=== PATIENT | male | born 1950 | race Caucasian/White ===

== ENCOUNTER 2021-02-28 06:46 | Day surgery (SDC) | payer MEDICARE, OTHER ==
[~2021-02-28 06:46] MED LIST: BUPIVACAINE 0.5% VIAL IJ ONE; Lactated Ringers 1,000 ML IV ONE; XYLOCAINE 1% HCL 20 ML MDV ONE
[2021-02-28] MEDS ORDERED: CEFAZOLIN 2 GM-D5W BAG** 2 GM/50 ML ML IV SCH (07:00)
[2021-02-28] MEDS ORDERED: Lactated Ringers 1,000 ML IV SCH (07:00)
[2021-02-28] MEDS ORDERED: CEFAZOLIN 2 GM-D5W BAG** 2 GM/50 ML ML IV ONE (07:01)
[2021-02-28] MEDS ORDERED: Lactated Ringers 1,000 ML IV ONE (07:01)
[2021-02-28] MEDS ORDERED: Sodium Chloride 3 ML UD NEBULES IH ONE (07:33)
[2021-02-28] MEDS ORDERED: Xopenex 1.25 MG/0.5 ML UD NEBULE IH ONE ×2 (07:33→07:38)
[2021-02-28 07:41] LABS: ANION GAP 10.1 MEQ/L (5-15); BLOOD UREA NITROGEN 25 mg/dL (9-20); CHLORIDE 102 mmol/L (98-107); Calcium 9.3 mg/dL (8.4-10.2); Carbon Dioxide 31 mmol/L (22-30); Creatinine 1 0.94 mg/dL (0.66-1.25); EST GLOMERULAR FILTRATION RATE > 60.0 ML/MIN; Glucose 112 mg/dL (74-106); SODIUM 139 mmol/L (137-145)
[2021-02-28] MEDS ORDERED: Versed 2 MG/2 ML Injection ONE (08:13)
[2021-02-28] MEDS ORDERED: SUBLIMAZE 100 MCG/2 ML ONE ×2 (08:13→08:26)
[2021-02-28] MEDS ORDERED: DIPRIVAN 200 MG/20 ML IV ONE ×4 (08:13→10:05)
--- NOTE | 2021-02-28 10:35 | XRAY ---
Indication: Unsuccessful hardware removal. Intraoperative fluoroscopy provided for 31 seconds. Single digital spot image submitted for interpretation demonstrates lateral 5th metatarsal fixation plate/screws. Correlate with intraoperative findings/report.
--- NOTE | 2021-02-28 10:37 | XRAY ---
31 seconds fluoroscopy time in surgery for unsuccessful hardware removal left foot.
[2021-02-28 11:39] VITALS: BP 136/71; PULSE 55; O2SAT 94
--- NOTE | 2021-03-05 13:48 | OP ---
SURGERY DATE/TIME: 02/28/202119 PREOPERATIVE DIAGNOSIS: Painful orthopedic hardware to left foot. POSTOPERATIVE DIAGNOSIS: Painful orthopedic hardware to left foot. PROCEDURE: Attempted removal of hardware left foot. SURGEON: Ortiz Conway DPM. HOME THERAPY TEACHER: None. ANESTHESIA: MAC plus local. HEMOSTASIS: Mid-calf tourniquet set to 250 mm of Mercury for 50 minutes. ESTIMATED BLOOD LOSS: Less than 10 cc. MATERIALS: 2-0 Nylon. INJECTABLES: 15 cc of 1:1 mixture of 0.5% bupivicaine plain and 1% lidocaine plain injected in a mini-Price type fashion. DESCRIPTION OF PROCEDURE AND FINDINGS: Following adequate assessment by the anesthesia team, the patient was brought into the OR and placed on the OR table. At this time a well-padded thigh tourniquet was placed on the patient's left mid-calf. Adequate sedation was administered by the anesthesia team and a preoperative block consisting 15 cc of a 1:1 mixture of 1% lidocaine plain and 0.5% bupivacaine plain was injected in a mini-Price type fashion to the left lower extremity. At this time the left lower extremity was prepped and draped in the typical sterile fashion and the surgical extremity was lowered onto the surgical field. At this time tourniquet was inflated after Esmarch was applied to the left lower extremity and attention was directed under fluoroscopic imaging to the lateral aspect of the fifth metatarsal base. Once identification of the location of the screw and plate most distal in the metatarsal was identified, a percutaneous stab incision approximately 1 cm in length was made utilizing blunt and sharp dissection at this location. On dissection down to the level of the plate, inspection of the plate and the screws demonstrated that this was a 2.7 Canales head screw which the staff did not have on hand. At this time multiple attempts were made in order to remove the screws utilizing a combination of rongeurs, flat head screws, star-headed drivers with gloves in order to maintain friction and manual manipulation of the screw. However, the adequate flag car driver size was not found. Runners were sent to a nearby hospital in order to obtain their surgical hardware set and the rep on-hand did not have the adequate tools to remove the 2.7 Canales head screws. At this time the decision was made to flush and close the incision site at the distal extent of the surgical site. Tourniquet was let down at 50 minutes total tourniquet time. 3-0 Nylon was utilized in a horizontal mattress-type fashion to coapt the skin edges together and a compression dressing consisting of betadine, Adaptic, 4x4, Dayami and Coban was applied to the left foot. The patient was reversed from anesthesia and returned to the postoperative anesthesia care unit with vascular status intact and vital signs stable. Postoperative orders as indicated in the patient's chart.
== END 2021-02-28 11:50 | disposition home or self-care (01) ==
LOC: SDC 06:46
PROVIDERS: ATTEND Podiatrist Foot & Ankle Surgery
DX: T84.84XA Pain due to internal orthopedic prosthetic devices, implants and grafts, initial encounter (principal); I10 Essential (primary) hypertension; Z79.899 Other long term (current) drug therapy
CPT/HCPCS: 20680; 36415; 73620; 76000; 80048; 94640; 99100; J0690; J2250; J2704; J3010; A9270-GY

== ENCOUNTER 2024-01-02 01:25 | Emergency (ER) | payer MEDICARE, OTHER ==
[2024-01-02 01:53] VITALS: TEMP 98.7
--- NOTE | 2024-01-02 02:23 | ERPHSYRPT ---
- History of Present Illness Time Seen by Provider: 01/02/24 02:23 Source: patient Patient Subjective Stated Complaint: edema to bilat lower ext/wt gain 16 pounds in 6 days Triage Nursing Assessment: Pt ambulated into ER without diff, spouse at bedside. Pt had a lumbar resection on Wednesday and held his hydrochlorithiazide 100mg that morning. Pt resumed the med on Wednesday. Pt has bilat lower ext swelling and has had a 16 pound weight gain since Wednesday. Pt states, "I always have some left lower ext edema but it's slightly more today". Pt c/o aching and burning down left arenas which began around 10pm tonight. Physician History: 73yo M presents via private vehicle for left leg pain, b/l LE edema, 16lb weight gain in last 6d. Pt states he had a Neurosurgical procedure on his lumbar spine to help improve nerve pain in his left leg on 12/28/23. Pt states he held a dose of his HCTZ following this procedure, was w/o it for a total of 24h. Pt states he has seen increase in b/l LE edema over the past 2d. Pt states he also developed some tightness and discomfort over his left arenas tonight, pt is concerned for blood clot given his hx of recent surgery. Pt states he took an extra 100mg HCTZ this evening to help w/ his edema, reports he has been urinating frequently since. Pt currently denies cp, soa, n/v, pain in left posterior fossa, pain in left calf. Timing/Duration: day(s) (5d ) Severity: moderate Modifying Factors: Improves With: nothing Associated Symptoms: No nausea, No vomiting, No abdominal pain, No shortness of breath, No chest pain, No fever Allergies/Adverse Reactions: lidocaine Adverse Reaction (Unknown, Verified 01/02/24 02:03) reaction x1 has had since w/o reaction Home Medications: Amlodipine Besylate 5 mg [Norvasc 5 mg] 5 mg PO DAILY 12/07/12 [History] Eplerenone 50 mg PO DAILY 12/07/12 [History] Esomeprazole Magnesium [Nexium] 40 mg PO BID 12/07/12 [History] Potassium Chloride Tab* [Klor Con] 40 meq PO BID 12/07/12 [History] Chlorthalidone 100 mg PO DAILY 02/19/21 [History] Olmesartan Medoxomil 40 mg PO DAILY 02/19/21 [History] Testosterone Cypionate 200 mg IM UD 02/19/21 [History] Oxycodone HCl/Acetaminophen [Oxycodone-Acetaminophen 5-325] 1 tab PO Q4H PRN PRN 01/02/24 [History] Semaglutide [Ozempic] 1 mg SQ WEEKLY 01/02/24 [History] Hx Tetanus, Diphtheria Vaccination/Date Given: Yes Hx Influenza Vaccination/Date Given: Yes Hx Pneumococcal Vaccination/Date Given: Yes Immunizations Up to Date: Yes Travel Risk - International Travel Have you traveled outside of the country in past 3 weeks: No - Emerging Infectious Disease Are you exhibiting symptoms associated with any current EIDs: No - Review of Systems Constitutional: No Symptoms Respiratory: No Symptoms Cardiac: Edema, No Chest Pain, No Palpitations, No Syncope Abdominal/Gastrointestinal: No Symptoms Genitourinary Symptoms: No Symptoms - Past Medical History Neurological History: No Pertinent History ENT History: No Pertinent History Cardiac History: Hypertension Respiratory History: No Pertinent History Endocrine Medical History: No Pertinent History Musculoskeletal History: No Pertinent History GI Medical History: Diverticulitis, GERD, Hernia History: No Pertinent History Psycho-Social History: No Pertinent History Male Reproductive Disorders: No Pertinent History - Past Surgical History Past Surgical History: Yes Neuro Surgical History: No Pertinent History Cardiac: No Pertinent History Respiratory: No Pertinent History Gastrointestinal: Hernia Repair Genitourinary: No Pertinent History Musculoskeletal: Orthopedic Surgery Male Surgical History: No Pertinent History Other Surgical History: bilateral knee scopes, bilateral hernia, discectomy L4- 5, right rotator cuff, bilateral carpal tunnel, right hip replacement, L4 lumbar fusion, C2-3 cervical fusion - Social History Smoking Status: Never smoker Exposure to second hand smoke: Yes Drug Use: none - Nursing Vital Signs Nursing Vital Signs: Initial Vital Signs Temperature 98.7 F 01/02/24 01:50 Pulse Rate 74 01/02/24 01:50 Respiratory Rate 18 01/02/24 01:50 Blood Pressure 150/76 01/02/24 01:50 O2 Sat by Pulse Oximetry 98 01/02/24 01:50 Pain Scale Pain Intensity 2 - Physical Exam General Appearance: no apparent distress Respiratory Exam: normal breath sounds, lungs clear, airway intact, No respiratory distress, No crackles/rales, No rhonchi Cardiovascular Exam: regular rate/rhythm, normal heart sounds, edema (+1 b/l LE edema below knees to ankles) Gastrointestinal/Abdomen Exam: soft, normal bowel sounds, No tenderness, No distention Extremity Exam: swelling, No pedal edema, No tenderness Neurologic Exam: alert, oriented x 3, cooperative SpO2: 98 - Course EKG Interpreted by Me: RATE (66), Sinus Rhythm, Non-specific ST Changes (not suggestive of ischemia), Other (qtcb [id number]) Ordered Tests: Active Orders 24 hr Category Date Time Status EKG-ER Only STAT Care 01/02/24 02:21 Active CHEST 1 VIEW (PORTABLE) Stat Exams 01/02/24 02:22 Taken VENOUS BILATERAL EXTREMITY [US] Stat Exams 01/02/24 03:40 Taken CBC W DIFF Stat Lab 01/02/24 02:55 Completed CMP Stat Lab 01/02/24 02:55 Completed D-DIMER QUANTITATIVE Stat Lab 01/02/24 02:55 Completed NT PRO BNPII Stat Lab 01/02/24 02:55 Completed TROPONIN Q4H Lab 01/02/24 02:55 Completed TROPONIN Q4H Lab 01/02/24 06:30 Ordered TROPONIN Q4H Lab 01/02/24 10:30 Ordered Lab/Rad Data: Laboratory Result Diagrams 01/02/24 02:55 01/02/24 02:55 Laboratory Results 01/02/24 01/02/24 01/02/24 Range/Units 02:55 02:55 02:55 WBC (4.0-10.5) x10^3/uL RBC (4.1-5.6) x10^6/uL Hgb (12.5-18.0) g/dL Hct (42-50) % MCV (78-100) fL MCH (26-32) pg MCHC (32-36) g/dL RDW (11.5-14.0) % Plt Count (150-450) x10^3/uL MPV (7.5-11.0) fL Gran % (36.0-66.0) % Immature Gran % (Auto) (0.00-0.4) % Nucleat RBC Rel Count (0.00-0.1) % Eos # (Auto) (0-0.5) x10^3/uL Immature Gran # (Auto) (0.00-0.03) x10^3u/L Absolute Lymphs (auto) (1.0-4.6) x10^3/uL Absolute Monos (auto) (0.0-1.3) x10^3/uL Absolute Nucleated RBC (0.00-0.01) x10^3u/L Lymphocytes % (24.0-44.0) % Monocytes % (0.0-12.0) % Eosinophils % (0.00-5.0) % Basophils % (0.0-0.4) % Absolute Granulocytes (1.4-6.9) x10^3/uL Basophils # (0-0.4) x10^3/uL D-Dimer 1.33 H* (0.0-0.50) mg/L Sodium 139 (135-145) mmol/L Potassium 3.8 (3.5-5.1) mmol/L Chloride 99 (98-107) mmol/L Carbon Dioxide 34 H (22-30) mmol/L Anion Gap 10.0 (5-15) MEQ/L BUN 24 H (9-20) mg/dL Creatinine 0.85 (0.66-1.25) mg/dL Estimated GFR 91.8 ML/MIN Glucose 94 (74-106) mg/dL Calcium 8.9 (8.4-10.2) mg/dL Total Bilirubin 0.80 (0.2-1.3) mg/dL AST 39 (17-59) U/L ALT 37 (0-50) U/L Alkaline Phosphatase 62 (38-126) U/L Troponin I < 0.012 (0.000-0.034) ng/mL NT-Pro-B Natriuret Pep 75.3 (<300) pg/mL Serum Total Protein 6.5 (6.3-8.2) g/dL Albumin 3.5 (3.5-5.0) g/dL 01/02/24 Range/Units 02:55 WBC 4.4 (4.0-10.5) x10^3/uL RBC 4.28 (4.1-5.6) x10^6/uL Hgb 13.1 (12.5-18.0) g/dL Hct 39.1 L (42-50) % MCV 91.4 (78-100) fL MCH 30.6 (26-32) pg MCHC 33.5 (32-36) g/dL RDW 14.6 H (11.5-14.0) % Plt Count 146 L (150-450) x10^3/uL MPV 11.1 H (7.5-11.0) fL Gran % 72.7 H (36.0-66.0) % Immature Gran % (Auto) 0.5 H (0.00-0.4) % Nucleat RBC Rel Count 0.0 (0.00-0.1) % Eos # (Auto) 0.15 (0-0.5) x10^3/uL Immature Gran # (Auto) 0.02 (0.00-0.03) x10^3u/L Absolute Lymphs (auto) 0.60 L (1.0-4.6) x10^3/uL Absolute Monos (auto) 0.41 (0.0-1.3) x10^3/uL Absolute Nucleated RBC 0.00 (0.00-0.01) x10^3u/L Lymphocytes % 13.8 L (24.0-44.0) % Monocytes % 9.4 (0.0-12.0) % Eosinophils % 3.4 (0.00-5.0) % Basophils % 0.2 (0.0-0.4) % Absolute Granulocytes 3.17 (1.4-6.9) x10^3/uL Basophils # 0.01 (0-0.4) x10^3/uL D-Dimer (0.0-0.50) mg/L Sodium (135-145) mmol/L Potassium (3.5-5.1) mmol/L Chloride (98-107) mmol/L Carbon Dioxide (22-30) mmol/L Anion Gap (5-15) MEQ/L BUN (9-20) mg/dL Creatinine (0.66-1.25) mg/dL Estimated GFR ML/MIN Glucose (74-106) mg/dL Calcium (8.4-10.2) mg/dL Total Bilirubin (0.2-1.3) mg/dL AST (17-59) U/L ALT (0-50) U/L Alkaline Phosphatase (38-126) U/L Troponin I (0.000-0.034) ng/mL NT-Pro-B Natriuret Pep (<300) pg/mL Serum Total Protein (6.3-8.2) g/dL Albumin (3.5-5.0) g/dL - Progress Progress: pain not gone completely Progress Note: 01/02/24 04:09 D dimer elevated trop wnl other labs largely unremarkable D dimer likely elevated 2/2 recent surgery, however, pt is not on blood thinners, has been less mobile since surgery and thus at risk for DVT will obtain LLE venous duplex US for r/o DVT 01/02/24 05:11 Per US tech, Venous duplex US was negative for DVT, will await radiologist read for formal r/o Plan for dc home LE edema and left arenas pain likely sequelae of recent back surgery Instructed to elevate feet above heart as much as possible to improve edema Instructed to f/u w/ PCP Dr Kumari early this week to discuss LE edema Return to ED if: one leg becomes significantly swollen/red/hot/painful behind the knee, develop shortness of breath, develop chest pain, HANNAH, blurry vision, Al tered mental status Counseled pt/family regarding: lab results, diagnosis, need for follow-up, rad results Medical Desision Making - Diagnostic Testing Diagnostic test were ordered, analyzed, and reviewed by me: Yes Radiological Interpretation: Reviewed by me, Teleradiologist Report - Risk of complications Low Risk: Low risk of morbidity from additional dx testing or treatment - Departure Departure Disposition: Home Clinical Impression: Bilateral lower extremity edema, Lumbar radiculopathy Condition: Stable Critical Care Time: No Referrals: BRENNAN KUMARI MD [Primary Care Provider] - Follow up/PCP as directed Additional Instructions: LE edema and left arenas pain likely sequelae of recent back surgery Instructed to elevate feet above heart as much as possible to improve edema Instructed to f/u w/ PCP Dr Kumari early this week to discuss LE edema Return to ED if: one leg becomes significantly swollen/red/hot/painful behind the knee, develop shortness of breath, develop chest pain, HANNAH, blurry vision, Altered mental status
[2024-01-02 02:51] VITALS: O2SAT 98
[2024-01-02 03:06] LABS: Absolute Neutrophil Ct (ANC) 3.17 x10^3/uL (1.4-6.9); BASOPHIL % 0.2 % (0.0-0.4); Basophil (Absolute #) 0.01 x10^3/uL (0-0.4); Eosinophil % 3.4 % (0.00-5.0); Eosinophil (Absolute #) 0.15 x10^3/uL (0-0.5); Hematocrit 39.1 % (42-50); Hemoglobin 13.1 g/dL (12.5-18.0); IMMATURE GRAN # 0.02 x10^3u/L (0.00-0.03); IMMATURE GRAN % 0.5 % (0.00-0.4); Lymphocytes % 13.8 % (24.0-44.0); Mean Cell Volume 91.4 fL (78-100); Mean Corpuscular Hemoglobin 30.6 pg (26-32); Mean Corpuscular Hgb Concent. 33.5 g/dL (32-36); Mean Platelet Volume 11.1 fL (7.5-11.0); Monocyte (Absolute #) 0.41 x10^3/uL (0.0-1.3); Monocytes % 9.4 % (0.0-12.0); Neutrophil % 72.7 % (36.0-66.0); Platelet Count 146 x10^3/uL (150-450); Red Blood Count 4.28 x10^6/uL (4.1-5.6); Red Cell Distribution Width 14.6 % (11.5-14.0); White Blood Count 4.4 x10^3/uL (4.0-10.5)
[2024-01-02 03:20] LABS: ALBUMIN 3.5 g/dL (3.5-5.0); BILIRUBIN,TOTAL 0.8 mg/dL (0.2-1.3); Calcium 8.9 mg/dL (8.4-10.2); Creatinine 1 0.85 mg/dL (0.66-1.25); EST GLOMERULAR FILTRATION RATE 91.8 ML/MIN; NT PRO BNPII 75.3 pg/mL (<300); Potassium 3.8 mmol/L (3.5-5.1); Total Protein 6.5 g/dL (6.3-8.2)
[2024-01-02 04:25] VITALS: PULSE 67
[2024-01-02 05:22] VITALS: BP 136/73; RESP 10
--- NOTE | 2024-01-02 08:55 | XRAY ---
Indication: Edema. Comparison: November 18, 2006 Portable apical lordotic chest less inflated, crowding both lung bases with bibasilar subsegmental atelectasis. Heart borderline enlarged again with tortuous descending aorta. Bony thorax intact again with osteopenia.
--- NOTE | 2024-01-02 08:55 | XRAY ---
Indication: Postop pain and swelling. Two-dimensional sonogram and color Doppler imaging major venous vessels left and right leg performed. Comparison: None No thrombus seen in the examined deep venous vessels left and right leg including greater saphenous vein. Veins demonstrate normal compressibility. Venous waveforms are normal with and without augmentation. Left lower leg demonstrates mild subcutaneous edema. Impression: Left and right leg negative for DVT. Comment: Preliminary report was given.
== END 2024-01-02 05:25 | disposition home or self-care (01) ==
LOC: ED 01:25
DX: R60.0 Localized edema (principal); M54.16 Radiculopathy, lumbar region; I10 Essential (primary) hypertension; Z79.891 Long term (current) use of opiate analgesic; Z79.85 Long-term (current) use of injectable non-insulin antidiabetic drugs; Z79.899 Other long term (current) drug therapy
CPT/HCPCS: 36415; 71045; 80053; 83880; 84484; 85025; 85379; 93005; 93970; 99284

== ENCOUNTER 2024-06-27 14:55 | Emergency (ER) | payer MEDICARE, OTHER ==
[2024-06-27 15:21] VITALS: RESP 18; TEMP 98; O2SAT 97
[2024-06-27 15:35] VITALS: PULSE 80
--- NOTE | 2024-06-27 15:45 | ERPHSYRPT ---
- History of Present Illness Time Seen by Provider: 06/27/24 15:20 Source: patient Exam Limitations: no limitations Patient Subjective Stated Complaint: Patient fell outside at home around 2pm today. States he fell off of some landscaping wall. He cough himself with his luna nds and then hit his head off of the ground. He did not lose conciousness. He did have an episode of nausea afterwards. Triage Nursing Assessment: Patient ambulated back to ER without difficulties. He is alert and oriented. Skin tone normal. CMS to fingers and wrists WNL. States no pain to wrists but hand hurt/burn. Denies pain to head, neck, back. Physician History: 74-year-old male presents to our ED for evaluation status post fall. Patient states he was in his front yard. Patient was walking over a retaining wall adjacent to his driveway. Patient miscalculated his proximity to the edge causing him to fall over. Patient fell on bilateral outstretched arms. Patient believes he may have dislocated his right small finger. Patient reduced it himself. Patient then fell onto his head and now complains of nausea. Patient denies pain at this time. Patient declined pain medication. concern for C-spine as patient has had a fusion in the past. Patient has superficial abrasions to the left knee and right elbow however these areas are minimally involved. Symptoms are mild to moderate in intensity. No specific worsening or improving factors. Patient otherwise feels well. He voices no other complaints at this time. Portions of this note were created with voice recognition technology. There may be grammatical, spelling, punctuation or sound alike errors Timing/Duration: today Severity: moderate Modifying Factors: Improves With: nothing Associated Symptoms: denies symptoms Allergies/Adverse Reactions: No Known Drug Allergies Allergy (Verified 06/27/24 15:11) Home Medications: Amlodipine Besylate 5 mg [Norvasc 5 mg] 5 mg PO DAILY 12/07/12 [History] Eplerenone 50 mg PO DAILY 12/07/12 [History] Esomeprazole Magnesium [Nexium] 40 mg PO BID 12/07/12 [History] Potassium Chloride Tab* [Klor Con] 40 meq PO BID 12/07/12 [History] Chlorthalidone 100 mg PO DAILY 02/19/21 [History] Olmesartan Medoxomil 40 mg PO DAILY 02/19/21 [History] Testosterone Cypionate 200 mg IM UD 02/19/21 [History] Oxycodone HCl/Acetaminophen [Oxycodone-Acetaminophen 5-325] 1 tab PO Q4H PRN PRN 01/02/24 [History] Semaglutide [Ozempic] 1 mg SQ WEEKLY 01/02/24 [History] Hx Tetanus, Diphtheria Vaccination/Date Given: Yes Hx Influenza Vaccination/Date Given: Yes Hx Pneumococcal Vaccination/Date Given: Yes Immunizations Up to Date: Yes Travel Risk - International Travel Have you traveled outside of the country in past 3 weeks: No - Emerging Infectious Disease Are you exhibiting symptoms associated with any current EIDs: No - Review of Systems Constitutional: No Symptoms, No Fever, No Chills Eyes: No Symptoms Ears, Nose, & Throat: No Symptoms Respiratory: No Symptoms, No Cough, No Dyspnea Cardiac: No Symptoms, No Chest Pain, No Edema, No Syncope Abdominal/Gastrointestinal: No Symptoms, No Abdominal Pain, No Nausea, No Vomiting, No Diarrhea Genitourinary Symptoms: No Symptoms, No Dysuria Musculoskeletal: No Symptoms, No Back Pain, No Neck Pain Skin: No Symptoms, No Rash Neurological: No Symptoms, No Dizziness, No Focal Weakness, No Sensory Changes Psychological: No Symptoms Endocrine: No Symptoms Hematologic/Lymphatic: No Symptoms Immunological/Allergic: No Symptoms All Other Systems: Reviewed and Negative - Past Medical History Pertinent Past Medical History: Yes Neurological History: Other ENT History: No Pertinent History Cardiac History: Hypertension Respiratory History: Other Endocrine Medical History: No Pertinent History Musculoskeletal History: Osteoarthritis GI Medical History: Diverticulitis, GERD, Hernia History: No Pertinent History Psycho-Social History: No Pertinent History Male Reproductive Disorders: No Pertinent History Other Medical History: SEASONAL ALLERGIES, R ELMER - Past Surgical History Past Surgical History: Yes Neuro Surgical History: No Pertinent History Cardiac: No Pertinent History Respiratory: No Pertinent History Gastrointestinal: Bowel Surgery, Hernia Repair Genitourinary: No Pertinent History Musculoskeletal: Orthopedic Surgery Male Surgical History: No Pertinent History Other Surgical History: bilateral knee scopes, bilateral hernia, discectomy L4- 5, right rotator cuff, bilateral carpal tunnel, right hip replacement, L4 lumbar fusion, C2-3 cervical fusion, 5th metatarsal - Social History Smoking Status: Never smoker Exposure to second hand smoke: Yes Drug Use: none - Social Determinants of Health Will the patient participate in the screening: Declined to provide - Nursing Vital Signs Nursing Vital Signs: Initial Vital Signs Blood Pressure 163/108 06/27/24 15:09 Pain Scale Pain Intensity 0 - Physical Exam General Appearance: no apparent distress, alert Eye Exam: PERRL/EOMI, eyes nml inspection Ears, Nose, Throat Exam: normal ENT inspection, TMs normal, pharynx normal, moist mucous membranes Neck Exam: normal inspection, non-tender, supple, full range of motion Respiratory Exam: normal breath sounds, lungs clear, No respiratory distress Cardiovascular Exam: regular rate/rhythm, normal heart sounds, normal peripheral pulses Gastrointestinal/Abdomen Exam: soft, normal bowel sounds, No tenderness, No mass Back Exam: normal inspection, normal range of motion, No CVA tenderness, No vert ebral tenderness Extremity Exam: normal inspection, normal range of motion, pelvis stable Neurologic Exam: alert, oriented x 3, cooperative, normal mood/affect, nml cerebellar function, nml station & gait, sensation nml, No motor deficits Skin Exam: normal color, warm, dry, No rash Lymphatic Exam: No adenopathy SpO2 Interpretation: normal SpO2: 97 O2 Delivery: Room Air - Course Nursing assessment & vital signs reviewed: Yes Ordered Tests: Active Orders 24 hr Category Date Time Status CERVICAL SPINE WO CONTRAST [CT] Stat Exams 06/27/24 15:36 Completed HAND (MINIMUM 3 VIEWS) Stat Exams 06/27/24 15:37 Taken HAND (MINIMUM 3 VIEWS) Stat Exams 06/27/24 15:37 Taken HEAD WITHOUT CONTRAST [CT] Stat Exams 06/27/24 15:36 Completed - Progress Progress: improved Progress Note: 74-year-old male status post fall. X-rays bilateral hand negative for fracture dislocation. However patient self reduced a dislocated right fifth digit. Involved digit neurovascular tact distally compartments are soft cap refill less than 2 seconds. No open or draining lesions associated with this dislocation. CT head negative for acute intracranial pathology. 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 CT cervical spine shows chronic degenerative changes. No fractures or dislocations. Patient will follow-up with his primary care doctor regarding the findings on his CT head. Patient referred to orthopedics regarding the hand pain and dislocated finger that he reduced prior to his arrival to our ED. Patient resting comfortably. Patient dates he is ready for discharge. He will follow-up as discussed. at bedside. They voiced no other complaints or concerns at this time. Portions of this note were created with voice recognition technology. There may be grammatical, spelling, punctuation or sound alike errors Complexity problem addressed is moderate acute complicated. No critical care time. Complex of data reviewed and analyzed is moderate. Test ordered chest reviewed results analyzed and correlated clinically with history and physical exam. Risk of complication and or risk of morbidity/mortality of patient management is low. Vital stable. Time spent to discharge patient approximately 15 minutes. Plan of care established for shared decision making. No social determinants of health present impede follow-up. Portions of this note were created with voice recognition technology. There may be grammatical, spelling, punctuation or sound alike errors 06/27/24 18:35 Counseled pt/family regarding: diagnosis, need for follow-up, rad results - Departure Departure Disposition: Home Clinical Impression: Concussion, Finger dislocation, Hand sprain Condition: Stable Critical Care Time: No Referrals: BRENNAN KUMARI MD [Primary Care Provider] - Follow up/PCP as directed Instructions: Concussion, Adult ED, Preventing Falls ED Additional Instructions: Discharge/Care Plan ADRIANNA WORLEY was seen on 06/27/24 in the Emergency Room. The patient was counseled regarding Diagnosis,Lab results, Imaging studies, need for follow up and when to return to the Emergency Room. Prescriptions given: Discharge Note I have spoken with the patient and/or caregivers. I have explained the patient's condition, diagnosis and treatment plan based on the information available to me at this time. I have answered the patient's and/or caregiver's questions and addressed any concerns. The patient and/or caregivers have as good understanding of the patient's diagnosis, condition and treatment plan as can be expected at this point. The vital signs have been stable. The patient's condition is stable and appropriate for discharge from the emergency department. The patient will pursue further outpatient evaluation with the primary care physician or other designated or consulting physician as outlined in the discharge instructions. The patient and/or caregivers are agreeable to this plan of care and follow-up instructions have been explained in detail. The patient and/or caregivers have received these instruction. The patient/and or caregivers are aware that any significant change in condition or worsening of symptoms should prompt an immediate return to this or the closest emergency department or call 911. Outpatient Orders: Ortho Referral Time Frame: 1 Day, Facility: [facility], Location: [facility]THO CLINIC
--- NOTE | 2024-06-27 16:04 | XRAY ---
Indication: Trauma. Multiple contiguous axial images obtained through the head without contrast. Comparison: None Age-appropriate global atrophy. Basal ganglia demonstrates remote lacunar infarct bilaterally. No acute intracranial hemorrhage, abnormal extra-axial fluid collection, or mass effect. Fourth ventricle is midline without hydrocephalus. Jackson-white matter differentiation preserved. Bony calvarium intact. Visualized paranasal sinuses and mastoid air cells clear. Impression: Remote bilateral basal ganglia lacunar infarcts. No acute intracranial abnormalities.
--- NOTE | 2024-06-27 16:06 | XRAY ---
Indication: Pain. Trauma. Multiple contiguous axial images obtained through the cervical spine. Sagittal and coronal reformatted images obtained. Comparison: None Osseous structures demineralized. Axial images negative for acute fracture, suspicious bony lesions, or spinal canal stenosis. Prior C3-C5 fusion with intact screws/intervertebral spacers. Mild/moderate C3-T1 degenerative endplate spurring and moderate atlantoaxial degenerative arthropathy. Sagittal and coronal reformatted images demonstrates lordotic straightening, positional versus paraspinal spasm. C5-T1 degenerative disc space narrowing. No acute compression fracture, subluxation, or jumped facet. Normal appearing craniocervical junction. Visualized noncontrasted soft tissues are unremarkable. Impression: 1. Cervical lordotic straightening, positional versus paraspinal spasm. 2. Negative acute fracture/subluxation. 3. Osteopenia, multilevel degenerative spondylosis, and C3-C5 fusion.
[2024-06-27 18:28] VITALS: BP 186/91
--- NOTE | 2024-06-27 22:12 | XRAY ---
Indication: Pain. Comparison: None 3 view left hand demonstrates osteopenia and minimal generative changes all IP/MCP joints. No other bony, articular, or soft tissue abnormalities.
--- NOTE | 2024-06-27 22:12 | XRAY ---
Indication: Pain. Comparison: None 3 view right hand demonstrates nondisplaced acute spiral fracture shaft 4th metacarpal. Elsewhere osteopenia and minimal degenerative changes all IP/MCP joints. Comment: Fracture not reported by interpreting ER clinician. Telephone report given to Dr. Rondon at 2207 hrs. on June 27, 2024
== END 2024-06-27 18:58 | disposition home or self-care (01) ==
LOC: ED 14:55
DX: S06.0X0A Concussion without loss of consciousness, initial encounter (principal); R11.0 Nausea; W19.XXXA Unspecified fall, initial encounter; M79.641 Pain in right hand; I10 Essential (primary) hypertension; S63.256A Unspecified dislocation of right little finger, initial encounter; Z79.899 Other long term (current) drug therapy
CPT/HCPCS: 70450; 72125; 73130; 99283

== ENCOUNTER 2025-08-22 14:33 | Day surgery (SDC) | payer MEDICARE, OTHER ==
[2025-08-22] MEDS ORDERED: LIDOCAINE HCL 1% 50 MG/5 ML VL IJ ONE (14:34)
--- NOTE | 2025-08-22 17:33 | XRAY ---
Indication: Left knee injection. Intraoperative fluoroscopy provided for 10 seconds. Single digital spot image submitted for interpretation demonstrates needle tip projecting over left femur intercondylar notch. Small amount of contrast injected for needle tip placement. Correlate with intraoperative findings/report.
--- NOTE | 2025-08-22 17:35 | XRAY ---
10 seconds of fluoroscopy were used in surgery for a left intra-articular knee injection.
== END 2025-08-22 17:10 | disposition home or self-care (01) ==
LOC: SDC-PAIN 14:33
PROVIDERS: ATTEND Psychiatry & Neurology Pain Medicine
DX: M17.12 Unilateral primary osteoarthritis, left knee (principal)

== ENCOUNTER 2025-09-12 15:20 | Day surgery (SDC) | payer MEDICARE, OTHER ==
[2025-09-12] MEDS ORDERED: LIDOCAINE HCL 1% 50 MG/5 ML VL IJ ONE (15:21)
--- NOTE | 2025-09-12 20:31 | XRAY ---
Indication: Left knee injection. Intraoperative fluoroscopy provided for 7 seconds. Single digital spot image submitted for interpretation demonstrates needle tip projecting over left femur intercondylar notch. Small amount of contrast injected for needle tip placement. Correlate with intraoperative findings/report.
--- NOTE | 2025-09-13 10:07 | XRAY ---
7 seconds of fluoroscopy was used in surgery for a left intra-articular knee injection.
== END 2025-09-12 17:25 | disposition home or self-care (01) ==
LOC: SDC-PAIN 15:20
PROVIDERS: ATTEND Psychiatry & Neurology Pain Medicine
DX: M17.12 Unilateral primary osteoarthritis, left knee (principal); R73.03 Prediabetes